=== PATIENT | female | born 1935 | race Caucasian/White ===

== ENCOUNTER 2017-01-09 09:24 | Outpatient (CLI) | payer MEDICARE, BC ==
[~2017-01-09] VITALS: Ht 172.7 cm; Wt 76.8 kg
--- NOTE | ~2017-01-09 | HEMODYNAMI ---
PATIENT:ANNALISA ALVARADO MEDICAL RECORD: [id number] : 35 LOCATION:[facility] ADMISSION DATE: 01/09/17 Generatedon:01/11/201711:02 Patient name: ANNALISA ALVARADO Patient #: [id number] SSN: : 1935 Date of study: 01/09/2017 Page: Of Hemodynamic Procedure Report Patient Data Patient Demographics Procedure consent was obtained First Name: ANNALISA Gender: Female Last Name: CHRISTIANO : 1935 [facility] Initial: DAVI Age: 81 year(s) Patient #: [id number] Race: Additional ID: [id number] Contact details Address: [address] [place] [address] [address] State: [place] City: [place] Zip code: [address] Past Medical History Allergies Allergen Reaction Date Comments Reported Other allergy 01/09/2017 LATEX Other allergy 01/10/2017 Latex Admission Admission Data Admission Date: 01/09/2017 Admission Time: 9:24 Room #: D.2122 Height (in.): 68 BSA: 1.9 (m2) Height (cm.): 172.72 BMI: 25.54 (kg/m2) Weight (lbs.): 168 Weight (kg.): 76.2 Lab Results Lab Result Date: 01/10/2017 Lab Result Time: 7:05 Biochemistry Name Units Result Min Max BUN mg/dl 14 --(--*-)-- 7 18 CK-MB ng/ml 2.6 --(--*-)-- 0 3.6 Creatinine mg/dl 0.9 --(-*--)-- 0.6 1.3 Creatinine l 118 --(-*--)-- 21 215 Kinase Troponin l ng/ml 0.172 --(----)-* 0 0.06 Procedure Procedure Types Cath Procedure Diagnostic Procedure [facility] w/Coronaries PCI Procedure Coronary Stent Initial Miscellaneous Procedures Moderate Sedation up to 30 minutes Procedure Description Procedure Date Procedure Date: 01/09/2017 Procedure Start Time: 12:40 Procedure End Time: 13:02 Procedure Staff Name Function Holley Ayush RT Monitor Julio César Augustin MD Performing Physician Moni Gilman RN Nurse Bryson Wilkerson RT Scrub Procedure Data Cath Procedure Fluoroscopy Diagnostic fluoroscopy Total fluoroscopy Time: 4.6 time: 4.6 min min Diagnostic fluoroscopy Total fluoroscopy dose: 443 dose: 443 mGy mGy Contrast Material Contrast Material Type Amount (ml) Isovue 300 109 Entry Location Entry Primary Successful Side Size Upsize Upsize Entry Closure Succes sful Closure Location (Fr) 1 (Fr) 2 (Fr) Remarks Device Remarks Femoral Right 5 Fr 6 Fr Exoseal artery Short Estimated blood loss: 10 ml Diagnostic catheters Device Type Used For End Catheter Placement Cordis 5Fr Pigtail LV Angiography Catheter (MP) Cordis 5Fr JL 4.0 Left Coronary Catheter (MP) Angiography Cordis 5Fr 3DRC Catheter Right Coronary (MP) Angiography Procedure Complications No complications Procedure Medications Medication Administration Route Dosage Oxygen NC 2 l/min Heparin Flush Bag added to field 2 bags (1000units/500ml NS) Lidocaine 2% added to field 20 Versed I.V. 1 mg Fentanyl I.V. 50 mcg Versed I.V. 0.5 mg Fentanyl I.V. 25 mcg Versed I.V. 0.5 mg Fentanyl I.V. 25 mcg Heparin Bolus I.V. 4000 units Hemodynamics Rest BSA: 1.9 (m2) O2 Consumption: Estimated: 164.72 (ml/min) O2 Consumption indexed: Estimated:86.69 (ml/min/m) Heart Rate: 62 (bpm) Snapshots Pre Cath Intra NCS Post Cath Vital Signs Time Heart Resp SPO2 NIBP (mmHg) Rhythm Pain Sedation Rate (ipm) (%) Status Level (bpm) 12:29:06 63 18 100 187/89(112) NSR 0 (11) 10(A) , No pain 12:33:34 63 17 95 177/83(149) NSR 0 (11) 10(A) , No pain 12:38:00 62 16 98 167/79(134) NSR 0 (11) 10(A) , No pain 12:42:22 67 16 100 160/74(128) NSR 0 (11) 9(A) , No pain 12:46:43 64 14 98 152/77(124) NSR 0 (11) 9(A) , No pain 12:51:03 65 14 98 149/71(110) NSR 0 (11) 9(A) , No pain 12:55:19 76 16 100 100/63(88) NSR 0 (11) 9(A) , No pain 13:00:09 66 15 100 163/84(127) NSR 0 (11) 9(A) , No pain Medications Time Medication Route Dose Verified Delivered Reason Notes Effectiveness by by 12:28:07 Oxygen NC 2 Julio César Moni Per physician l/min Demetria Gilman RN 12:28:13 Heparin Flush added 2 Julio César Julio César used for Bag to bags Demetria Augustin MD procedure (1000units/500ml field NS) 12:28:25 Lidocaine 2% added 20ml Julio César Julio César used for to vial Demetria Augustin MD procedure field 12:34:58 Versed I.V. 1 mg Julio César Moni for sedation Demetria Gilman RN 12:35:04 Fentanyl I.V. 50 Julio César Moni for sedation mcg Demetria Gilman RN 12:37:18 Versed I.V. 0.5 Julio César Moni for sedation mg Demetria Gilman RN 12:37:22 Fentanyl I.V. 25 Julio César Moni for sedation mcg Demetria Gilman RN 12:40:17 Versed I.V. 0.5 Julio César Moni for sedation mg Demetria Gilman RN 12:40:20 Fentanyl I.V. 25 Julio César Moni for sedation mcg Demetria Gilman RN 12:46:13 Heparin Bolus I.V. 4000 Julio César Moni for dose units Demetria Gilman RN anticoagulation verified with dr augustin Procedure Log Time Note 12:16:09 Nathalie Post RN sent for patient. Start room use. 12:16:10 Time tracking: Regular hours 12:16:14 Plan of Care:Hemodynamics will remain stable., Cardiac rhythm will remain stable., Comfort level will be maintained., Respiratory function will remain adequate., Patient/ family verbilizes understanding of procedure., Procedure tolerated without complication., Recovers from procedure without complications.. 12:23:12 Patient received from Pre/Post Procedure Room to CCL 1 Alert and oriented. Tansferred to table in Supine position. 12:23:13 Warm blankets applied, and loretta hugger turned on for patient comfort. 12:23:14 Correct patient and procedure confirmed by team. 12:23:18 Signed procedure consent form obtained from patient. 12:23:19 ECG and BP/O2 sat monitors applied to patient. 12:23:21 Full Disclosure recording started 12:27:57 Vital chart was started 12:28:07 Oxygen 2 l/min NC was administered by Moni Gilman RN; Per physician; 12:28:13 Heparin Flush Bag (1000units/500ml NS) 2 bags added to field was administered by Julio César Augustin MD; used for procedure; 12:28:25 Lidocaine 2% 20ml vial added to field was administered by Julio César Augustin MD; used for procedure; 12:31:16 Rhythm: sinus rhythm 12:31:24 H&P Date Dictated: 01/08/2017 Within 30 days and on chart., H&P Addendum completed by physician on day of procedure. (MUST COMPLETE FOR ALL OUTPATIENTS). 12:31:26 Pre-op teaching completed and patient verbalized understanding. 12:31:26 Pre-procedure instructions explained to patient. 12:31:27 Family in waiting room. 12:31:29 Patient NPO since Midnight. 12:31:45 Patient allergic to Other allergyLATEX 12:31:47 Is the patient allergic to Iodine/contrast media? No. 12:31:50 Is patient on blood thinner?Yes 12:31:53 ACC The patient was administered the following blood thiners within the last 24 hours: ACCPlavix 12:31:55 Patient diabetic? No. 12:32:23 Previous problem with sedation/anesthesia? No ? 12:32:24 Snore? Yes 12:32:25 Sleep apnea? No 12:32:27 Deviated septum? No 12:32:28 Opens mouth fully? Yes 12:32:29 Sticks out tongue? Yes 12:32:31 Airway obstruction? No ? 12:32:41 Dentures? Yes Partial in 12:32:44 Pre procedure: right dorsailis pedis pulse 2+ Normal; easily identifiable; not easily obliterated 12:32:51 Patient pain scale 0/10 ?. 12:32:57 IV patent on arrival in left hand with 0.9% NaCl at KVO. 12:33:06 Lab results completed and on chart. 12:33:11 Right groin area was prepped with chlora-prep and draped in sterile fashion 12:33:17 Patient Height : 68 cm 12:33:20 Patient Weight : 168 kg 12:33:24 Sharps counted by scrub and verified by R.N. 12:33:24 Alarms reviewed by R. N. 12:34:13 Baseline sample Acquired. 12:34:15 Final Timeout: patient, procedure, and site verified with staff and physician. All members of the team are in agreement. 12:34:17 Right groin site verified by team. 12:34:20 Physical assessment completed. ASA score P 2 - A patient with mild systemic disease as per Julio César Augustin MD. 12:34:24 Sedation plan: IV Moderate Sedation Versed, Fentanyl 12:34:34 Use device set Femoral Dx 12:34:35 Acist Syringe opened to sterile field. 12:34:36 Terumo 5Fr Roseboom Sheath opened to sterile field. 12:34:36 Medline Cath Pack opened to sterile field. 12:34:36 Bag Decanter opened to sterile field. 12:34:37 St Juan F 260cm J .035 wire opened to sterile field. 12:34:38 Acist Manifold opened to sterile field. 12:34:38 Acist Hand Control opened to sterile field. 12:34:39 Tegaderm 4 x 4 opened to sterile field. 12:34:39 Diagnostic Infinity 5Fr Multipack catheter opened to sterile field. 12:34:58 Versed 1 mg I.V. was administered by Moni Gilman RN; for sedation; 12:35:04 Fentanyl 50 mcg I.V. was administered by Moni Gilman RN; for sedation; 12:37:18 Versed 0.5 mg I.V. was administered by Moni Gilman RN; for sedation; 12:37:22 Fentanyl 25 mcg I.V. was administered by Moni Gilman RN; for sedation; 12:40:17 Versed 0.5 mg I.V. was administered by Moni iGlman RN; for sedation; 12:40:20 Fentanyl 25 mcg I.V. was administered by Moni Gilman RN; for sedation; 12:40:20 Procedure started. 12:40:26 Local anesthetic to right femoral artery with Lidocaine 2% by Julio César Augustin MD.INITIAL ACCESS ONLY 12:40:46 A 5 Fr sheath was inserted into the Right Femoral artery 12:41:27 A Cordis 5Fr Pigtail Catheter (MP) was advanced over the wire and used for LV Angiography. 12:41:42 LV gram done using REYEZ 12::46 Injector settings: Ml/sec: 10, Volume: 20, 12:42:03 EF : 50 % 12:42:06 Catheter removed. 12:42:13 A Cordis 5Fr JL 4.0 Catheter (MP) was advanced over the wire and used for Left Coronary Angiography. 12:43:15 Wright Tujiaisper J 300cm 0.014 guide wire opened to sterile field. 12:43:15 MicrodermisixCompak Inflation Kit opened to sterile field. 12:43:16 Terumo 6Fr Roseboom Sheath opened to sterile field. 12:43:22 Catheter removed. 12:43:44 A Cordis 5Fr 3DRC Catheter (MP) was advanced over the wire and used for Right Coronary Angiography. 12:44:28 Catheter removed. 12:44:42 Medtronic Launcher 6Fr HS I guide catheter opened to sterile field. 12:45:00 Sheath upsized to a 6 Fr Short. 12:45:19 6 Fr HS I guide catheter was inserted over the wire 12:46:13 Heparin Bolus 4000 units I.V. was administered by Moni Gilman RN; for anticoagulation; dose verified with dr augustin 12:48:00 Tujiaisper wire advanced. 12:48:12 Inflation number: 1 A Grant Sci Custer 2.5 X 15 balloon was prepped and advanced across the Mid RCA, then inflated to 9 KAR for 0:07 (min:sec). 12:48:33 Balloon removed over the wire. 12:50:37 Inflation Number: 2 A Biofreedom 3.0 x 24 stent (No Cost Implant) was prepped and advanced across the Mid RCA. The stent was deployed at 13 KAR for 0:11 (min:sec). 12:51:05 Inflation number: 3 The stent balloon was then re-inflated across the Mid RCA to 13 KAR for 0:11 (min:sec). 12:51:53 Stent catheter was removed intact over wire. 12:52:43 Inflation Number: 1 A Biofreedom 3.0 x 24 stent (No Cost Implant) was prepped and advanced across the Prox RCA. The stent was deployed at 15 KAR for 0:06 (min:sec). 12:53:20 Stent catheter was removed intact over wire. 12:53:21 Guide catheter removed. 12:53:21 Wire removed. 12:53:30 Cordis 6Fr Exoseal opened to sterile field. 12:54:05 Sheath removed intact; hemostasis achieved with Exoseal to the Right Femoral artery. 12:54:06 Procedure ended.(Physican Out) 12:55:29 Fluoroscopy time 04.60 minutes. 12:55:33 Fluoroscopy dose: 443 mGy 12:55:33 Flurop Dose total: 443 12:55:39 Contrast amount:Isovue 300 109ml. 12:55:40 Sharps counted by scrub and verified by R.N. 12:55:42 Insertion/operative site no bleeding no hematoma. 12:55:44 Post-op/insertion site Right Femoral artery dressed using a 4 x 4 and Tegaderm. 12:55:48 Post right femoral artery:stable, clean and dry 12:55:50 Post Procedure Pulses reassessed and unchanged 12:55:55 Post-procedure physical assessment completed. ASA score P 2 - A patient with mild systemic disease as per Julio César Augustin MD. 12:55:58 Post procedure rhythm: unchanged. 12:56:01 Estimated blood loss: 10 ml 12:56:02 Patient needs reinforcement of post procedure teaching. 12:56:02 Post procedure instruction explained to patient.Patient verbalizes understanding. 12:56:15 Procedure type changed to Cath procedure, Diagnostic procedure, LHC, LHC w/Coronaries, PCI procedure, Coronary Stent Initial, Miscellaneous Procedures, Moderate Sedation up to 30 minutes 12:56:19 Procedure Complication : No complications 12:56:21 See physician's report for complete and final results. 13:01:23 Procedure and supply charges have been captured, reviewed, submitted and are correct. 13:01:55 Vital chart was stopped 13:01:57 Report given to PCU. 13:02:07 Patient transfered to PCU with Bed. 13:02:16 Full Disclosure recording stopped 13:02:16 Procedure ended. 13:02:23 End room use (Document Last) Intervention Summary Intervention Notes Time ActionType Lesion and Equipment Action# Pressure Duration Attributes Used 12:48:12 Inflate Mid RCA Grant Sci 1 9 00:07 balloon Custer 2.5 X 15 balloon 12:50:37 Place stent Mid RCA Biofreedom 2 13 00:11 3.0 x 24 stent (No Cost Implant) 12:51:05 Reinflate Mid RCA Biofreedom 3 13 00:11 stent 3.0 x 24 balloon stent (No Cost Implant) 12:52:43 Place stent Prox RCA Biofreedom 1 15 00:06 3.0 x 24 stent (No Cost Implant) Device Usage Item Name Manufacture Quantity Catalog Number Hospital Part Current Mini mal Lot# / Charge Number Stock Stock Serial# Code Acist Acist 1 26025 356316 747569 793592 20 Syringe Medical Systems Inc Bag Microtek 1 2002S 272681 63780 993291 5 Biodirection Inc. Medline Cardinal 1 [id number] 542840 24469 272579 5 Cath Pack Health Terumo 5Fr Terumo 1 [id number] 025986 757072 022161 [address] [facility] Juan F 1 205552 114408 747714 538487 30 260cm J .035 wire Acist Hand Acist 1 02934 016551 396559 419509 5 Trax Technologies Medical Systems Inc Acist Acist 1 15085 471126 088910 896996 [address] Autos Medical [employer] Inc Diagnostic Cardinal 1 [id number] 270711 71249 887810 30 Infinity Health 5Fr Multipack catheter Tegaderm 4 3M 1 1626W 907404 618214 715132 5 x 4 Cordis 5Fr Cardinal 1 [id number] 5 Pigtail Health Catheter (MP) Cordis 5Fr Cardinal 1 206279 5 JL 4.0 Health Catheter (MP) Merit Merit 1 [id number] 084582 871502 743499 15 BasixCompak Medical Inflation Kit Wright Wright 1 [id number] 097427 262986 327558 5 Whisper J Vascular 300cm 0.014 guide wire Terumo 6Fr Terumo 1 [id number] 388835 973104 755593 40 Roseboom Sheath Cordis 5Fr Cardinal 1 395441 5 3DRC Health Catheter (MP) Medtronic Medtronic 1 [facility] 584901 35447 180941 1 Launcher 6Fr HS I guide catheter Grant Sci Grant 1 [id number] 508606 671712 768624 1 [id number] YouRenew 2.5 X 15 balloon Biofreedom Biosensors 2 RC2-3024 004532 141952 5 [id number] 3.0 x 24 [place] SA [id number] stent (No Cost Implant) Cordis 6Fr Cardinal 1 EX600 409221 861029 663917 10 [facility] Health Signature Audit [place] Stage Time Signature Unsigned Intra-Procedure 01/09/2017 Holley Babb Counts 1:02:36 PM Counts RT(R) RT(R) 01/11/2017 11:01:19 AM Intra-Procedure 01/11/2017 Holley 11:02:21 AM Counts RT(R) Signatures Monitor : Holley Signature : Counts RT Date : Time : [id number] [place] [address]
--- NOTE | ~2017-01-09 | HEMODYNAMI ---
PATIENT:ANNALISA ALVARADO MEDICAL RECORD: [id number] : 35 LOCATION:[facility] ADMISSION DATE: 01/09/17 Generatedon:01/11/201710:56 Patient name: ANNALISA ALVARADO Patient #: [id number] SSN: : 1935 Date of study: 01/10/2017 Page: Of Hemodynamic Procedure Report Patient Data Patient Demographics Procedure consent was obtained First Name: ANNALISA Gender: Female Last Name: CHRISTIANO : 1935 [facility] Initial: DAVI Age: 81 year(s) Patient #: [id number] Race: Additional ID: [id number] Contact details Address: [address] [place] [address] [address] State: [place] City: [place] Zip code: [address] Past Medical History Allergies Allergen Reaction Date Comments Reported Other allergy 01/09/2017 LATEX Other allergy 01/10/2017 Latex Admission Admission Data Admission Date: 01/09/2017 Admission Time: 9:24 Room #: [facility] Height (in.): 68 BSA: 1.9 (m2) Height (cm.): 172.72 BMI: 25.54 (kg/m2) Weight (lbs.): 168 Weight (kg.): 76.2 Lab Results Lab Result Date: 01/10/2017 Lab Result Time: 7:05 Biochemistry Name Units Result Min Max BUN mg/dl 14 --(--*-)-- 7 18 CK-MB ng/ml 2.6 --(--*-)-- 0 3.6 Creatinine mg/dl 0.9 --(-*--)-- 0.6 1.3 Creatinine l 118 --(-*--)-- 21 215 Kinase Troponin l ng/ml 0.172 --(----)-* 0 0.06 Procedure Procedure Types Cath Procedure PCI Procedure Coronary Stent Initial x2 Miscellaneous Procedures Moderate Sedation up to 15 minutes Procedure Description Procedure Date Procedure Date: 01/10/2017 Procedure Start Time: 9:37 Procedure End Time: 9:56 Procedure Staff Name Function Alo Dennis RT Monitor Boogie Martinez RT Scrub Julio César Augustin MD Performing Physician Moni Gilman RN Nurse Bryson Wilkerson RT Monitor Procedure Data Cath Procedure Fluoroscopy Diagnostic fluoroscopy Total fluoroscopy Time: 4.7 time: 4.7 min min Diagnostic fluoroscopy Total fluoroscopy dose: 185 dose: 185 mGy mGy Contrast Material Contrast Material Type Amount (ml) Isovue 300 102 Entry Location Entry Primary Successful Side Size Upsize Upsize Entry Closure Succes sful Closure Location (Fr) 1 (Fr) 2 (Fr) Remarks Device Remarks Femoral Left 6 Fr Exoseal artery Short Estimated blood loss: 10 ml Procedure Complications No complications Procedure Medications Medication Administration Route Dosage Oxygen NC 2 l/min Heparin Flush Bag added to field 2 bags (1000units/500ml NS) Lidocaine 2% added to field 20 Plavix P.O. 75 mg Versed I.V. 1 mg Fentanyl I.V. 50 mcg Versed I.V. 1 mg Fentanyl I.V. 50 mcg Heparin Bolus I.V. 4000 units Versed I.V. 1 mg Fentanyl I.V. 50 mcg Nitroglycerin IC/IA I.C. 200 mcg Versed I.V. 1 mg Fentanyl I.V. 50 mcg Hemodynamics Rest BSA: 1.9 (m2) O2 Consumption: Estimated: 168.86 (ml/min) O2 Consumption indexed: Estimated:88.87 (ml/min/m) Heart Rate: 68 (bpm) Snapshots Pre Cath Intra NCS Post Cath Vital Signs Time Heart Resp SPO2 etCO2 [id number] NIBP (mmHg) Rhythm Pain Sedation Rate (ipm) (%) (mmHg) (mmHg) Status Level (bpm) 9:04:58 68 17 99 0 0 100/53(82) NSR 0 (11) 10(A) , No pain 9:09:57 67 17 99 0 0 Measuring NSR 0 (11) 10(A) , No pain 9:10:00 68 17 99 0 0 146/75(128) NSR 0 (11) 10(A) , No pain 9:14:22 65 16 98 0 0 144/69(125) NSR 0 (11) 10(A) , No pain 9:18:42 66 16 96 0 0 146/68(124) NSR 0 (11) 10(A) , No pain 9:23:00 64 16 97 0 0 116/74(98) NSR 0 (11) 10(A) , No pain 9:27:12 61 24 98 0 0 131/63(105) NSR 0 (11) 10(A) , No pain 9:31:28 62 16 98 0 0 117/66(97) NSR 0 (11) 10(A) , No pain 9:35:40 61 16 94 0 0 110/65(84) NSR 0 (11) 10(A) , No pain 9:39:49 64 19 88 0 0 116/65(91) NSR 0 (11) 9(A) , No pain 9:43:59 70 16 98 0 0 121/68(101) NSR 0 (11) 9(A) , No pain 9:48:09 68 17 95 0 0 136/71(103) NSR 0 (11) 9(A) , No pain 9:52:25 67 20 96 0 0 132/70(107) NSR 0 (11) 10(A) , No pain 9:57:20 66 95 0 0 128/68(103) NSR 0 (11) 10(A) , No pain Medications Time Medication Route Dose Verified Delivered Reason Notes Effectiveness by by 9:00:20 Plavix P.O. 75 mg Julio César Moni for Demetria Gilman RN antiplatelet therapy 9:06:01 Oxygen NC 2 Julio César Moni Per physician l/min Demetria Gilman RN 9:06:10 Heparin Flush added 2 Julio César Julio César used for Bag to bags Demetria Augustin MD procedure (1000units/500ml field NS) 9:06:18 Lidocaine 2% added 20ml Julio César Julio César used for to vial Demetria Augustin MD procedure field 9:36:25 Versed I.V. 1 mg Julio César Moni for sedation Demetria Gilman RN 9:36:31 Fentanyl I.V. 50 Julio César Moni for sedation mcg Demetria Gilman RN 9:38:46 Versed I.V. 1 mg Julio César Moni for sedation Demetria Gilman RN 9:38:49 Fentanyl I.V. 50 Julio César Moni for sedation mcg Demetria Gilman RN 9:39:09 Heparin Bolus I.V. 4000 Julio César Moni for dose units Demetria Gilman RN anticoagulation verified wtih dr augustin 9:40:51 Versed I.V. 1 mg Julio César Moni for sedation Demetria Gilman RN 9:40:56 Fentanyl I.V. 50 Julio César [place] for sedation mcg Demetria Gilman RN 9:42:45 Versed I.V. 1 mg Julio César [place] for sedation Demetria Gilman RN 9:42:49 Fentanyl I.V. 50 Julio César [place] for sedation mcg Demetria Gilman RN 9:45:00 Nitroglycerin I.C. 200 Julio César [place] for IC/IA mcg Demetria Augustin MD vasodilation Procedure Log Time Note 8::56 Patient Weight : 168 kg 8::56 Patient Height : 68 cm 8:43:42 Boogie Martinez RT(R) sent for patient. Start room use. 8:43:43 Time tracking: Regular hours 8:43:47 Plan of Care:Hemodynamics will remain stable., Cardiac rhythm will remain stable., Comfort level will be maintained., Respiratory function will remain adequate., Patient/ family verbilizes understanding of procedure., Procedure tolerated without complication., Recovers from procedure without complications.. 8:55:52 Patient received from PCU to CCL 1 Alert and oriented. Tansferred to table in Supine position. 8:55:53 Correct patient and procedure confirmed by team. 8:55:53 Warm blankets applied, and loretta hugger turned on for patient comfort. 8:55:56 Signed procedure consent form obtained from patient. 8:55:57 ECG and BP/O2 sat monitors applied to patient. 9:00:20 Plavix 75 mg P.O. was administered by Moni Gilman RN; for antiplatelet therapy; 9:03:16 Vital chart was started 9:06:01 Oxygen 2 l/min NC was administered by Moni Gilman RN; Per physician; 9:06:10 Heparin Flush Bag (1000units/500ml NS) 2 bags added to field was administered by Julio César Augustin MD; used for procedure; 9:06:18 Lidocaine 2% 20ml vial added to field was administered by Julio César Augustin MD; used for procedure; 9:12:26 Baseline sample Acquired. 9:12:29 Full Disclosure recording started 9:12:51 H&P Date Dictated: 01/08/2017 Within 30 days and on chart.. 9:12:52 Pre-procedure instructions explained to patient. 9:12:53 Pre-op teaching completed and patient verbalized understanding. 9:13:02 Family in waiting room. 9:13:07 Patient NPO since Midnight. 9:13:18 Patient allergic to Other allergyLatex 9:13:20 Is the patient allergic to Iodine/contrast media? No. 9:13:21 Is patient on blood thinner?Yes 9:13:23 ACC The patient was administered the following blood thiners within the last 24 hours: ACCPlavix 9:13:25 Patient diabetic? No. 9:13:31 Previous problem with sedation/anesthesia? No ? 9:13:32 Snore? Yes 9:13:33 Sleep apnea? No 9:13:34 Deviated septum? No 9:13:36 Opens mouth fully? Yes 9:13:38 Sticks out tongue? Yes 9:13:41 Airway obstruction? No ? 9:13:47 Dentures? Yes Partial In 9:13:51 Pre procedure: left dorsailis pedis pulse 2+ Normal; easily identifiable; not easily obliterated 9:13:53 Patient pain scale 0/10 ?. 9:13:58 IV patent on arrival in left forearm with 0.9% NaCl at O. 9:14:44 Lab results completed and on chart. 9:14:47 Left groin area was prepped with chlora-prep and draped in sterile fashion 9:14:48 Sharps counted by scrub and verified by R.N. 9:14:48 Alarms reviewed by R. N. 9:14:51 Use device set Femoral PCI 9:14:52 Tegaderm 4 x 4 opened to sterile field. 9:14:55 Acist Syringe opened to sterile field. 9:14:56 Bag Decanter opened to sterile field. 9:14:56 Acist Hand Control opened to sterile field. 9:14:57 Terumo 6Fr [place] Sheath opened to sterile field. 9:14:57 Medline Cath Pack opened to sterile field. 9:14:58 Merit BasixCompak Inflation Kit opened to sterile field. 9:14:58 St Juan F 260cm J .035 wire opened to sterile field. 9:14:59 Acist Manifold opened to sterile field. 9:15:20 Rhythm: sinus rhythm 9:16:43 Wright Whisper J 300cm 0.014 guide wire opened to sterile field. :: Lab Result : Creatinine Kinase 118 l :: Lab Result : Troponin l 0.172 ng/ml :: Lab Result : CK-MB 2.6 ng/ml :: Lab Result : BUN 14 mg/dl :: Lab Result : Creatinine 0.9 mg/dl 9:20:00 Physician paged 9:20:17 Zero performed for pressure channel P1 9::30 Zero performed for pressure channel P1 9::55 Zero performed for pressure channel P1 9::45 Physician arrived 9::46 --------ALL STOP TIME OUT------ 9:35:47 Final Timeout: patient, procedure, and site verified with staff and physician. All members of the team are in agreement. 9:35:49 Left groin site verified by team. 9:35:56 Physical assessment completed. ASA score P 2 - A patient with mild systemic disease as per Julio César Augustin MD. 9:36:00 Sedation plan: IV Moderate Sedation Versed, Fentanyl 9:36:25 Versed 1 mg I.V. was administered by Moni Gilman RN; for sedation; 9:36:31 Fentanyl 50 mcg I.V. was administered by Moni Gilman RN; for sedation; 9:37:46 Cordis 6FR XB 3.5 guide catheter opened to sterile field. 9:37:51 Procedure started. 9:37:57 Local anesthetic to left femerol artery with Lidocaine 2% by Julio César Augustin MD.INITIAL ACCESS ONLY 9:38:10 A 6 Fr Short sheath was inserted into the Left Femoral artery 9:38:46 Versed 1 mg I.V. was administered by Moni Gilman RN; for sedation; 9:38:49 Fentanyl 50 mcg I.V. was administered by Moni Gilman RN; for sedation; 9:38:56 6 Fr XB 3.5 guide catheter was inserted over the wire 9:39:09 Heparin Bolus 4000 units I.V. was administered by Moni Gilman RN; for anticoagulation; dose verified [facility] dr augustin 9:39:24 LCA angiography performed. 9:40:17 WHISPER wire advanced. 9:40:44 Wire advanced across lesion. 9:40:51 Versed 1 mg I.V. was administered by Moni Gilman RN; for sedation; 9:40:56 Fentanyl 50 mcg I.V. was administered by Moni Gilman RN; for sedation; 9:41:10 Inflation Number: 1 A Biofreedom 2.5 x 18 stent (No Cost Implant) was prepped and advanced across the Mid CX. The stent was deployed at 15 KAR for 0:10 (min:sec). 9:41:43 Stent catheter was removed intact over wire. 9:42:45 Versed 1 mg I.V. was administered by Moni Gilman RN; for sedation; 9:42:49 Fentanyl 50 mcg I.V. was administered by Moni Gilman RN; for sedation; 9:43:54 Inflation number: 2 A Euphora 3.0 x 10 balloon was prepped and advanced across the Mid CX, then inflated to 13 KAR for 0:10 (min:sec). 9:44:01 Inflation number: 3 The Euphora 3.0 x 10 balloon was reinflated across the Mid CX, to 17 KAR for 0:10 (min:sec). 9:44:20 Inflation number: 4 The Euphora 3.0 x 10 balloon was reinflated across the Mid CX, to 11 KAR for 0:10 (min:sec). 9:45:00 Nitroglycerin IC/IA 200 mcg I.C. was administered by Julio César Augustin MD; for vasodilation; 9:45:08 Balloon removed over the wire. 9:46:43 Inflation Number: 5 A Biofreedom 2.5 x 14 stent (No Cost Implant) was prepped and advanced across the Mid CX. The stent was deployed at 11 KAR for 0:10 (min:sec). 9:47:23 Stent catheter was removed intact over wire. 9:47:27 Wire redirected to LAD. 9:47:49 Wire advanced across lesion. 9:49:06 Inflation Number: 1 A Biofreedom 3.0 x 28 stent (No Cost Implant) was prepped and advanced across the Prox LAD. The stent was deployed at 13 KAR for 0:10 (min:sec). 9:49:30 Cordis 6Fr Exoseal opened to sterile field. 9:49:33 Stent catheter was removed intact over wire. 9:49:34 Guide catheter removed. 9:49:34 Wire removed. 9:49:41 Sheath removed intact; hemostasis achieved with Exoseal to the Left Femoral artery. 9:49:43 Procedure ended.(Physican Out) 9:49:53 Fluoroscopy time 04.70 minutes. 9:49:57 Fluoroscopy dose: 185 mGy 9:49:57 Flurop Dose total: 185 9:50:02 Contrast amount:Isovue 300 102ml. 9:54:21 Sharps counted by scrub and verified by R.N. 9:54:22 Insertion/operative site no bleeding no hematoma. 9:54:25 Post-op/insertion site Left Femoral artery dressed using a 4 x 4 and Tegaderm. 9:54:30 Post left femerol artery:stable, soft, clean and dry 9:54:31 Post Procedure Pulses reassessed and unchanged 9:54:34 Post-procedure physical assessment completed. ASA score P 2 - A patient with mild systemic disease as per Julio César Augustin MD. 9:54:36 Post procedure rhythm: unchanged. 9:54:38 Estimated blood loss: 10 ml 9:54:40 Post procedure instruction explained to patient.Patient verbalizes understanding. 9:55:05 Patient needs reinforcement of post procedure teaching. 9:55:22 Procedure type changed to Cath procedure, PCI procedure, Coronary Stent Initial x2, Miscellaneous Procedures, Moderate Sedation up to 15 minutes 9:56:10 Procedure and supply charges have been captured, reviewed, submitted and are correct. 9:56:12 Procedure Complication : No complications 9:56:14 See physician's report for complete and final results. 9:56:14 Vital chart was stopped 9:56:17 Report given to PCU. 9:56:20 Patient transfered to PCU with Stretcher. 9:56:23 Full Disclosure recording stopped 9:56:23 Procedure ended. 9:57:15 End room use (Document Last) Intervention Summary Intervention Notes Time ActionType Lesion and Equipment Action# Pressure Duration Attributes Used 9:41:10 Place stent Mid CX Biofreedom 1 15 00:10 2.5 x 18 stent (No Cost Implant) 9:43:54 Inflate Mid CX Euphora 2 13 00:10 balloon 3.0 x 10 balloon 9:44:01 Reinflate Mid CX Euphora 3 17 00:10 balloon 3.0 x 10 balloon 9:44:20 Reinflate Mid CX Euphora 4 11 00:10 balloon 3.0 x 10 balloon 9:46:43 [address] stent Mid CX Biofreedom 5 11 00:10 2.5 x 14 stent (No Cost Implant) 9:49:06 Place stent Prox LAD Biofreedom 1 13 00:10 3.0 x 28 stent (No Cost Implant) Device Usage Item Name Manufacture Quantity Catalog Hospital Part Current Minimal Lot# / Number Charge Number Stock Stock Serial# Code Tegaderm 4 1 [id number] 278246 476979 5 x 4 Acist Acist 1 90142 536117 798153 986001 20 Syringe Medical Systems Inc Acist Hand Acist 1 34675 978866 067807 162384 5 WhatsOpen Medical Systems [employer] Sports Affinity Marketing Bag Microtek 1 2002S 993586 36170 700348 5 Teamie Inc. Medline Cardinal 1 [id number] 441941 57094 223694 5 Cath Revistronic Terumo 6Fr Terumo 1 [id number] 146642 468353 914621 [address] Juan F 1 451219 663757 514885 522549 30 260cm J .035 wire Merit Merit 1 [id number] 719592 177724 658128 15 [facility] Inflation Kit Acist Acist 1 39414 259984 599655 373528 5 Allena [employer] Medical Systems Inc Wright Wright 1 [id number] 241603 539971 134133 5 Whisper J Vascular 300cm 0.014 guide wire Cordis 6FR Cardinal 1 [id number] 826742 053092 397277 2 XB 3.5 Health guide catheter Biofreedom Biosensors 1 BFRC2-8817 827015 344226 5 [id number] 2.5 x 18 [place] SA stent (No Cost Implant) Euphora 3.0 Medtronic 1 [id number] 432832 670183 717241 5 [id number] x 10 balloon Biofreedom Biosensors 1 BFRC2-1346 419705 780773 5 [id number] 2.5 x 14 [place] SA stent (No Cost Implant) Biofreedom Biosensors 1 BFRC2-3028 954503 475400 5 [id number] 3.0 x 28 Europe SA stent (No Cost Implant) Cordis 6Fr Cardinal 1 [id number] 452868 916211 475556 10 [facility] Signature Audit Barton Stage Time Signature Unsigned Intra-Procedure 01/10/2017 Bryson Wilkerson RT(R) 9:57:37 AM RT(R) 01/11/2017 10:55:20 AM Intra-Procedure 01/11/2017 Bryson Wilkerson 10:56:08 AM RT(R) Signatures Monitor : Alo Dennis RT Signature : Date : Time : Monitor : Bryson Wilkerson RT Signature : Date : Time : [id number] [place] [address]
[2017-01-09 10:41] LABS: BASOPHILS 0.4 % (0-2); EOSINOPHILS 1.2 % (0-7); HEMATOCRIT 40.8 % (36.0-48.0); HEMOGLOBIN 13.8 g/dL (12-16); LYMPHOCYTES 45.4 % (15-50); MCH 30.2 pg (26.0-34.0); MCHC 33.8 g/dL (31.0-37.0); MCV 89.3 fL (80.0-100.0); MEAN PLATELET VOLUME 9.9 fL (7.4-10.4); MONOCYTES 8.9 % (2-11); NEUTROPHILS 44.1 % (40-80); PLATELET COUNT 166 10x3/uL (130-400); RBC 4.57 10x6/uL (4.00-5.40); RDW 13.1 % (11.5-14.5); WBC 4.9 10x3/uL (4.8-10.8)
[2017-01-09 10:45] VITALS: BP 155/67; BMI 25.6
[2017-01-09] MEDS ORDERED: KRILL OIL 1,001 EAC1 PO (10:49)
[2017-01-09] MEDS ORDERED: PLAVIX75 MG PO (10:49)
[2017-01-09] MEDS ORDERED: NP THYROID30 MG PO (10:50)
[2017-01-09] MEDS ORDERED: VITAMIN D5000 UNIT PO (10:50)
[2017-01-09] MEDS ORDERED: OCUVITE TABLET1 TA1 PO (10:50)
[2017-01-09 10:56] LABS: ANION GAP 12.3 mmol/L (8-16); CALCIUM 8.9 mg/dL (8.5-10.1); CARBON DIOXIDE 27.5 mmol/L (21.0-32.0); CREATININE - SERUM 0.9 mg/dL (0.6-1.3); POTASSIUM - SERUM 3.8 mmol/L (3.5-5.1)
[2017-01-09 12:45] LABS: CREATINE KINASE 238 UL (21-215)
[2017-01-09 15:57] VITALS: Ht 172.7 cm; Wt 76.8 kg
[2017-01-09 19:00] VITALS: BP 123/65
[2017-01-10] VITALS: BP 137/65
[2017-01-10 04:00] VITALS: BP 103/50
[2017-01-10 07:00] VITALS: BP 127/79
[2017-01-10] MEDS ORDERED: BAYER CHEWABLE81 MG PO (11:16)
[2017-01-10 12:00] VITALS: BP 104/66
--- NOTE | 2017-01-11 08:49 | DS ---
PATIENT:ANNALISA EUGENE :35 MEDICAL RECORD: [id number] DISCHARGE SUMMARY ADMISSION DATE: 01/09/17 DISCHARGE DATE: 01/10/17 DISCHARGE DIAGNOSES: 1. Angina. 2. Coronary artery disease. 3. Percutaneous transluminal coronary angioplasty stent right coronary artery, left anterior descending and left circumflex this admission. HOSPITAL COURSE: Mrs. Eugene presents with anginal symptomatology, found to have 3-vessel coronary artery disease, underwent successful PTCA stent of all 3 vessels. She was discharged home with the addition of aspirin and Plavix to her medical regimen. She will follow up with [facility] in 1 month. TRANSINT:[id number] Voice Confirmation ID: [id number] DOCUMENT ID: [id number] RAVINDRA JETER MD at 0849 CC: [id number] DICTATION DATE: 01/10/17 0959 HEAD STRENGTH AND CONDITIONING COACH: 01/11/17 0741 [facility] CLI 01/10/17 [address] [place] [address]
--- NOTE | 2017-01-11 08:49 | OP ---
PATIENT NAME: ANNALISA ALVARADO MEDICAL RECORD: [id number] :35 LOCATION:D.CAT ADMISSION DATE: SURGEON: RAVINDRA JETER MD DATE OF OPERATION: 01/10/2017 PROCEDURES: 1. PTCA stent LAD. 2. PTCA stent left circumflex. 3. Selective coronary angiography. PROCEDURE IN DETAIL: After informed consent was obtained and after detailed explanation of risks, benefits as well as alternative therapies, the patient elected to proceed with angiogram and angioplasty. The left femoral area was prepped and draped in normal sterile fashion. Left femoral artery was cannulated via modified Seldinger technique with placement of 6-Turkmen sheath. All catheters exchanged through this sheath. FINDINGS: The lesion #1 was in the left circumflex, it was a 90% stenosis, approximately 18-mm lesion in a 2.5 vessel with LAURA-3 flow. This was addressed with a 2.5 x 14 and 2.5 x 18, both BioFreedom stent. Result was 0% residual stenosis, LAURA-3 flow. Lesion #2 was LAD, it was a 25-mm lesion and had 80% stenosis in 3.0 vessel. This was addressed with a 3.0 x 28 mm Iva stent. Result was 0% residual stenosis, LAURA-3 flow. IMPRESSION: Successful percutaneous transluminal coronary angioplasty stent of the left anterior descending and left circumflex going from 80% to 90% stenosis to 0% residual stenosis. TRANSINT:[id number] Voice Confirmation ID: [id number] DOCUMENT ID: [id number] RAVINDRA JETER MD at 0849 CC: [id number] DICTATION DATE: 01/10/17 0958 GUARD LIEUTENANT: 01/10/17 1117 [facility] CLI 01/10/17 [place] [address]
--- NOTE | 2017-01-11 08:49 | OP ---
PATIENT NAME: ANNALISA ALVARADO MEDICAL RECORD: [id number] :35 LOCATION:D.CAT ADMISSION DATE: SURGEON: RAVINDRA JETER MD DATE OF OPERATION: 01/09/2017 PROCEDURES: 1. PTCA stent RCA. 2. Left heart catheterization. 3. Selective coronary angiography. 4. Left ventriculogram. INDICATION: Angina and coronary artery disease. PROCEDURE IN DETAIL: After informed consent was obtained and after detailed explanation of risks, benefits as well as alternative therapies, the patient elected to proceed with the angiogram and angioplasty. The right femoral area is prepped and draped in normal sterile fashion. The right femoral artery was cannulated via modified Seldinger technique with placement of 6-Nepali sheath. All catheters exchanged through this sheath. FINDINGS: Left ventriculogram was performed in standard 30-degree REYEZ view, reveals good cardiac wall motion throughout all segments. Overall ejection fraction estimated at 60%. SELECTIVE CORONARY ANGIOGRAPHY: 1. Left main showed no significant angiographic disease. 2. Left anterior descending has a long area of 70% stenosis proximally. 3. Left circumflex has 90% stenosis in the mid vessel. 3. The right coronary has a 75% stenosis proximally in a 3.0 vessel with 20 mm length and a 99% stenosis in the mid vessel that is a 3.0 vessel at 20 mm in length with LAURA-3 flow of the first lesion, LAURA 2 flow of the second lesion. PTCA STENT OF THE RIGHT CORONARY: Both lesions were treated with a 3.0 x 24 BioFreedom stent. Result was 0% residual stenosis. OVERALL IMPRESSION: Successful percutaneous transluminal coronary angioplasty stent of the right coronary artery going from 99% initial stenosis to 0% residual with caodaism of LAURA-3 flow. PLAN: PTCA stent of the left circumflex and LAD in the near future. TRANSINT:[id number] Voice Confirmation ID: [id number] DOCUMENT ID: [id number] RAVINDRA JETER MD at 0849 CC: [id number] DICTATION DATE: 01/09/17 1308 GLASS EMBOSSER: 01/09/17 2329 [facility] CLI 01/10/17 [place] [address]
== END 2017-01-10 15:15 | disposition home or self-care (01) ==
LOC: D.CATH 09:24 → D.M2 09:24 → D.CATH 11:30 → D.M2 13:11 → D.CATH 01-10 15:15
PROVIDERS: Internal Medicine Interventional Cardiology
DX: I25.119 Atherosclerotic heart disease of native coronary artery with unspecified angina pectoris (principal); Z00.6 Encounter for examination for normal comparison and control in clinical research program; Z01.812 Encounter for preprocedural laboratory examination

== ENCOUNTER → 2017-04-03 10:09 | Outpatient (CLI) | payer MEDICARE, BC ==
[2017-01-09 15:57] VITALS: BMI 25.6
[~2017-04-03 10:09] MED LIST: BAYER CHEWABLE81 MG PO; KRILL OIL 1,001 EAC1 PO; NP THYROID30 MG PO; OCUVITE TABLET1 TA1 PO; PLAVIX75 MG PO; VITAMIN D5000 UNIT PO
== END | disposition home or self-care (01) ==
LOC: D.US 10:09
DX: I73.9 Peripheral vascular disease, unspecified (principal)

== ENCOUNTER 2017-04-06 12:46 | Observation (INO) | payer MEDICARE, BC ==
[~2017-04-06] VITALS: Ht 172.7 cm; Wt 72.7 kg
--- NOTE | ~2017-04-06 | HP ---
PATIENT: ANNALISA ALVARADO MEDICAL RECORD: [id number] ACCOUNT: [id number] LOCATION:[address] : 35 ADMISSION DATE: 04/06/17 HISTORY AND PHYSICAL EXAMINATION Admission History and Physical HISTORY OF PRESENT ILLNESS: The patient presented to the Emergency Room with acute onset of chest pain after weeding, working in the garden, some relief with rest, if resumed activity, chest pain worsened, radiating to her neck and jaw. PAST MEDICAL HISTORY: Significant for cardiovascular disease with stents approximately [address] Augustin. Also, history of hypothyroidism. REVIEW OF SYSTEMS: GENERAL: No acute change in weight or appetite. HEENT: No cephalgia, visual changes, tinnitus, epistaxis, or dysphagia. CARDIOVASCULAR: Significant as above. Also of note, on the patient's arrival to the ER, she was given nitroglycerin with complete resolution of chest pain. PULMONARY: Denies hemoptysis, denies night sweats. GASTROINTESTINAL: Denies hematemesis, hematochezia, or melena. GENITOURINARY: Denies dysuria, denies change in frequency. MUSCULOSKELETAL: No acute changes. ENDOCRINE: Denies polyuria, polydipsia, or polyphagia. FAMILY HISTORY: Noncontributory. CURRENT MEDICATIONS: Aspirin 81 mg daily, [place] Thyroid, vitamin D, Krill, beta-carotene, she was on Plavix following her stents, but this has been discontinued at her cardiology followup. ALLERGIES: LATEX. SOCIAL HISTORY: Negative for tobacco or alcohol. PHYSICAL EXAMINATION: VITAL SIGNS: Temp 98.4, blood pressure is 140/53, heart rate 53, respirations 16 and O2 sats 96%. GENERAL: Alert and oriented, no present distress. HEENT: Head is normocephalic and atraumatic. Eyes: Pupils are equal, round, reactive to light and accommodation. Extraocular muscles are intact. Conjunctiva was not injected. Ears: Canals patent, TMs are intact. Nose: Nares patent without drainage. Throat: No erythema and no exudates. NECK: Supple. No lymphadenopathy and no JVD. LABORATORY DATA: ProBNP is 311. CBC: White count 5000, hemoglobin 13.4, hematocrit 38.6 and platelets 154. Chemistry shows a sodium of 140, potassium 3.4, chloride 106, bicarbonate 28.2, BUN 11, creatinine 0.9 and glucose 117. CK is 143, CK-MB is 3.4 and troponin 0.016. Triglycerides 217. DIAGNOSTIC DATA: Chest x-ray PA and lateral, no acute cardiopulmonary abnormalities, persistent nodular density in the right lung base, likely representing pulmonary nodule. Recommendation for followup CT of the chest. EKG shows sinus rhythm, nonspecific ST changes, ventricular rate of 67. HISTORY AND PHYSICAL [id number] FEBRUARY,ANNALISA TOMLINSON ASSESSMENT AND PLAN: 1. Chest pain with exertion, relieved with sublingual nitroglycerin, known cardiovascular disease. The patient is admitted. Cardiology consulted. Cycle enzymes. 2. Hypothyroid. Resume patient's home medications. TRANSINT:[id number] Voice Confirmation ID: [id number] DOCUMENT ID: [id number] RUPA LOWRY DO CC: [id number] DICTATION DATE: 04/06/171753 WAX BLENDER: 04/06/171921 ADM IN [facility] [address] [id number]
--- NOTE | ~2017-04-06 | HEMODYNAMI ---
PATIENT:ANNALISA ALVARADO MEDICAL RECORD: [id number] : 35 LOCATION:[facility] D.2114 ADMISSION DATE: 04/06/17 Generatedon:04/07/201713:44 Patient name: ANNALISA ALVARADO Patient #: [id number] SSN: [id number] : 1935 Date of study: 04/07/2017 Page: Of Hemodynamic Procedure Report Patient Data Patient Demographics Procedure consent was obtained First Name: ANNALISA Gender: Female Last Name: CHRISTIANO : 1935 [facility] Initial: DAVI Age: 81 year(s) Patient #: [id number] Race: SSN: [id number] Additional ID: [id number] Contact details [address]: [address] [place] [address] [address] State: [place] City: [place] Zip code: [address] Past Medical History Allergies Allergen Reaction Date Comments Reported Other allergy 01/09/2017 LATEX Other allergy 01/10/2017 Latex Natural rubber 04/07/2017 and latex Admission Admission Data Admission Date: 04/06/2017 Admission Time: 14:34 Room #: D.2114 Lab Results Lab Result Date: 04/07/2017 Lab Result Time: 0:00 Biochemistry Name Units Result Min Max Creatinine mg/dl 1 --(--*-)-- 0.6 1.3 CBC Name Units Result Min Max Hemoglobin g/dl 12.6 -*(----)-- 13.5 17.5 Procedure Procedure Types Cath Procedure Diagnostic Procedure LHC LHC w/Coronaries Miscellaneous Procedures Moderate Sedation up to 15 minutes Procedure Description Procedure Date Procedure Date: 04/07/2017 Procedure Start Time: 13:28 Procedure End Time: 13:44 Procedure Staff Name Function Holley Peacock RT Monitor Robyn Hazel RT Scrub Meera Pulliam RN Nurse Carlos Gagnon MD Performing Physician Indication Chest pain Procedure Data Cath Procedure Fluoroscopy Diagnostic fluoroscopy Total fluoroscopy Time: 1.9 time: 1.9 min min Diagnostic fluoroscopy Total fluoroscopy dose: 300 dose: 300 mGy mGy Contrast Material Contrast Material Type Amount (ml) Isovue 300 69 Entry Location Entry Primary Successful Side Size Upsize Upsize Entry Closure Succes sful Closure Location (Fr) 1 (Fr) 2 (Fr) Remarks Device Remarks Femoral Right 5 Fr Exoseal artery Estimated blood loss: 5 ml Diagnostic catheters Device Type Used For End Catheter Placement Cordis 5Fr JL 4.0 Left Coronary Catheter (MP) Angiography Cordis 5Fr 3DRC Catheter Right Coronary (MP) Angiography Cordis 5Fr Pigtail LV Angiography Catheter (MP) Procedure Complications No complications Procedure Medications Medication Administration Route Dosage Oxygen NC 2 l/min Lidocaine 2% added to field 20 Heparin Flush Bag added to field 2 bags (1000units/500ml NS) 0.9% NaCl I.V. 100 ml/hr Versed I.V. 1 mg Fentanyl I.V. 50 mcg Hemodynamics Rest HGB: 12.6 (g/dl) Heart Rate: 59 (bpm) Pressure Samples Time Site Value (mmHg) Purpose Heart Use Rate(bpm) 13:38 LV 154/-11,21 EDP 60 13:39 AO 144/62(96) Pullback 63 13:39 LV 151/12,20 Pullback 63 Gradients Valve Time Site 1 Site 2 Mean SEP/DFP Peak To Heart Use (mmHg) (sec/min) Peak Rate (mmHg) (bpm) Aortic 13:39 LV AO 9 20 7 63 151/12,20 144/62(96) Calculations Valve P-P Mean Valve Index Valve Source Name Gradient Area Flow (cm2) Aortic 7 9 7 9 Snapshots Pre Cath Intra NCS Post Cath Vital Signs Time Heart Resp SPO2 etCO2 [id number] NIBP (mmHg) Rhythm Pain Sedation Rate (ipm) (%) (mmHg) (mmHg) Status Level (bpm) 13:20:43 68 16 98 0 0 170/77(133) NSR 0 (11) 10(A) , No pain 13:26:06 62 14 99 0 0 142/77(123) NSR 0 (11) 10(A) , No pain 13:30:28 65 14 98 0 0 145/73(124) NSR 0 (11) 10(A) , No pain 13:34:46 66 16 98 0 0 141/69(118) NSR 0 (11) 9(A) , No pain 13:39:09 63 15 100 0 0 140/65(112) NSR 0 (11) 9(A) , No pain 13:43:27 60 14 100 0 0 141/65(116) NSR 0 (11) 9(A) , No pain Medications Time Medication Route Dose Verified Delivered Reason Notes Effec tiveness by by 13:10:40 Oxygen NC 2 Carlos Buffie used for l/min Kalin Pulliam RN procedure 13:10:47 Lidocaine 2% added 20ml Carlos Carlos used for to vial Kalin Gagnon MD procedure field 13:10:55 Heparin Flush added 2 Carlos Carlos used for Bag to bags Kalin Gagnon MD procedure (1000units/500ml field NS) 13:11:05 0.9% NaCl I.V. 100 Carlos Buffie Per ml/hr Kalin Pulliam RN physician 13:29:28 Versed I.V. 1 mg Carlos Buffie for Kalin Pulliam RN sedation 13:29:36 Fentanyl I.V. 50 Carlos Buffie for mcg Kalin Pulliam RN sedation Procedure Log Time Note 12:24:54 Informed consent obtained and on chart 12:25:12 Diagnostic Cath Status : Elective 12:25:56 Indication : Chest pain 12:52:32 Meera Pulliam RN sent for patient. Start room use. 12:52:43 Time tracking: Call back 12:52:47 Plan of Care:Hemodynamics will remain stable., Cardiac rhythm will remain stable., Comfort level will be maintained., Respiratory function will remain adequate., Patient/ family verbilizes understanding of procedure., Procedure tolerated without complication., Recovers from procedure without complications.. 13:00:46 Patient received from PCU to CCL 1 Alert and oriented. Tansferred to table in Supine position. 13:00:47 Correct patient and procedure confirmed by team. 13:00:47 Warm blankets applied, and loretta hugger turned on for patient comfort. 13:00:48 ECG and BP/O2 sat monitors applied to patient. 13:08:58 Rhythm: sinus rhythm 13:08:59 Full Disclosure recording started 13:09:09 Vital chart was stopped 13:09:12 Vital chart was started 13:09:28 H&P Date Dictated: 04/07/2017 Within 30 days and on chart.. 13:09:29 Pre-procedure instructions explained to patient. 13:09:30 Pre-op teaching completed and patient verbalized understanding. 13:09:31 Family in waiting room. 13:09:33 Patient NPO since Midnight. 13:09:43 Patient allergic to Natural rubber and latex 13:09:46 Is the patient allergic to Iodine/contrast media? No. 13:09:48 Is patient on blood thinner?Yes 13:09:49 Patient diabetic? No. 13:09:53 Snore? Yes 13:09:53 Previous problem with sedation/anesthesia? No ? 13:09:54 Sleep apnea? No 13:09:56 Deviated septum? No 13:09:57 Opens mouth fully? Yes 13:09:58 Sticks out tongue? Yes 13:09:59 Airway obstruction? No ? 13:10:02 Dentures? Yes In 13:10:05 Pre procedure: right dorsailis pedis pulse 2+ Normal; easily identifiable; not easily obliterated 13:10:09 Patient pain scale 0/10 ?. 13:10:20 IV patent on arrival in right wrist with 0.9% NaCl at [facility]. 13:10:40 Oxygen 2 l/min NC was administered by Meera Pulliam RN; used for procedure; 13:10:47 Lidocaine 2% 20ml vial added to field was administered by Carlos Gagnon MD; used for procedure; 13:10:55 Heparin Flush Bag (1000units/500ml NS) 2 bags added to field was administered by Carlos Gagnon MD; used for procedure; 13:11:05 0.9% NaCl 100 ml/hr I.V. was administered by Meera Pulliam RN; Per physician; 13:11:15 Lab Result : Hemoglobin 12.6 g/dl 13:11:15 Lab Result : Creatinine 1 mg/dl 13:11:19 Lab results completed and on chart. 13:11:23 Right groin area was prepped with chlora-prep and draped in sterile fashion 13:11:24 Alarms reviewed by R. N. 13:11:25 Sharps counted by scrub and verified by R.N. 13:11:29 Baseline sample Acquired. 13:23:10 Vital chart was stopped 13:23:11 Vital chart was started 13:23:32 Vital chart was stopped 13:23:33 Vital chart was started 13:23:49 Vital chart was stopped 13:23:53 Vital chart was started 13:24:23 Vital chart was stopped 13:24:32 Full Disclosure recording stopped 13:24:57 Vital chart was started 13:25:40 Final Timeout: patient, procedure, and site verified with staff and physician. All members of the team are in agreement. 13:25:41 Right groin site verified by team. 13:25:44 Physical assessment completed. ASA score P 2 - A patient with mild systemic disease as per Holley Counts RT(R). 13:25:48 Sedation plan: IV Moderate Sedation Versed, Fentanyl 13:25:59 Baseline sample Acquired. 13:27:27 Use device set Femoral Dx 13:27:29 Acist Syringe opened to sterile field. 13:27:29 Bag Decanter opened to sterile field. 13:27:30 Medline Cath Pack opened to sterile field. 13:27:30 Terumo 5Fr Corydon Sheath opened to sterile field. 13:27:31 St Juan F 260cm J .035 wire opened to sterile field. 13:27:31 Acist Hand Control opened to sterile field. 13:27:32 Acist Manifold opened to sterile field. 13:27:32 Diagnostic Infinity 5Fr Multipack catheter opened to sterile field. 13:27:33 Tegaderm 4 x 4 opened to sterile field. 13:28:42 Zero performed for pressure channel P1 13:28:49 Procedure started. 13:28:49 Full Disclosure recording started 13:28:52 Local anesthetic to right femoral artery with Lidocaine 2% by Carlos Gagnon MD.INITIAL ACCESS ONLY 13:29:28 Versed 1 mg I.V. was administered by Meera Pulliam RN; for sedation; 13:29:36 Fentanyl 50 mcg I.V. was administered by Meera Pulliam RN; for sedation; 13:30:17 A 5 Fr sheath was inserted into the Right Femoral artery 13:30:25 Cook 4Fr Micropuncture ([id number]) opened to sterile field. 13:31:48 A Cordis 5Fr JL 4.0 Catheter (MP) was advanced over the wire and used for Left Coronary Angiography. 13:34:31 Catheter exchanged over wire. 13:35:09 A Cordis 5Fr 3DRC Catheter (MP) was advanced over the wire and used for Right Coronary Angiography. 13:36:52 Catheter exchanged over wire. 13:37:16 A Cordis 5Fr Pigtail Catheter (MP) was advanced over the wire and used for LV Angiography. 13:38:47 LV gram done using REYEZ 13:38:48 LV hemodynamics recorded. 13:38:51 Injector settings: Ml/sec: 12, Volume: 8, 13:39:10 Catheter removed. 13:39:21 Sheath removed intact; hemostasis achieved with Exoseal to the Right Femoral artery. 13:39:26 Procedure ended.(Physican Out) 13:39:40 Cordis 5Fr Exoseal opened to sterile field. 13:39:47 Fluoroscopy time 01.90 minutes. 13:39:51 Fluoroscopy dose: 300 mGy 13:39:51 Flurop Dose total: 300 13:39:53 Contrast amount:Isovue 300 69ml. 13:39:55 Sharps counted by scrub and verified by R.N. 13:39:56 Insertion/operative site no bleeding no hematoma. 13:39:59 Post-op/insertion site Right Femoral artery dressed using a 4 x 4 and Tegaderm. 13:40:02 Post right femoral artery:stable, clean and dry 13:40:04 Post Procedure Pulses reassessed and unchanged 13:40:08 Post-procedure physical assessment completed. ASA score P 2 - A patient with mild systemic disease as per Carlos Gagnon MD. 13:40:11 Post procedure rhythm: unchanged. 13:40:16 Estimated blood loss: 5 ml 13:40:47 Post procedure instruction explained to patient.Patient verbalizes understanding. 13:40:47 Patient needs reinforcement of post procedure teaching. 13:41:04 Procedure type changed to Cath procedure, Diagnostic procedure, LHC, LHC w/Coronaries, Miscellaneous Procedures, Moderate Sedation up to 15 minutes 13:41:10 Procedure Complication : No complications 13:41:12 See physician's report for complete and final results. 13:44:11 Procedure and supply charges have been captured, reviewed, submitted and are correct. 13:44:13 Report given to PCU. 13:44:16 Patient transfered to PCU with Bed. 13:44:31 Procedure ended. 13:44:31 Full Disclosure recording stopped 13:44:34 End room use (Document Last) 13:44:47 Vital chart was stopped Device Usage Item Name Manufacture Quantity Catalog Hospital Part Current Minimal Lot# / Number Charge Number Stock Stock Serial# Code Acist Syringe Acist 1 16287 170372 692079 826645 20 [employer] Bag Decanter Microtek 1 2002S [id number] 57390 387415 5 [employer] Inc[employer] Medline Cath Cardinal 1 [id number] 904460 37498 817805 5 Pack Health Terumo 5Fr Terumo 1 [id number] 533111 562616 726051 [address] Juan F [address] Juan F 1 716534 723251 192947 526200 30 J .035 wire Acist Hand Acist 1 60449 779481 010550 003381 5 Control [employer] Inc Acist Acist 1 99874 304788 543397 968151 5 Manifold [employer] Inc Diagnostic Cardinal 1 [id number] 670669 78622 934446 30 Infinity 5Fr Health Multipack catheter Tegaderm 4 x 3M 1 1626W 034365 309256 646006 5 4 Cook 4Fr Cook Medical 1 [id number] 347254 008844 779004 5 Micropuncture ([id number]) Cordis 5Fr JL Cardinal 1 762574 5 4.0 Catheter Health (MP) Cordis 5Fr Cardinal 1 295529 5 3DRC Catheter Health (MP) Cordis 5Fr Cardinal 1 747321 5 Pigtail Health Catheter (MP) Cordis 5Fr Cardinal 1 EX500 495494 400024 384812 10 [facility] Health Signature Audit [place] Stage Time Signature Unsigned Intra-Procedure 04/07/2017 Holley 1:44:44 PM Counts RT(R) Signatures Monitor : Holley Signature : Counts RT Date : Time : [facility] [address] [place] [address]
[2017-04-06 13:17] LABS: BASOPHILS 0.4 % (0-2); EOSINOPHILS 0.6 % (0-7); HEMATOCRIT 38.6 % (36.0-48.0); HEMOGLOBIN 13.4 g/dL (12-16); IMMATURE GRANULOCYTES 0.2 % (0-5); LYMPHOCYTES 33.3 % (15-50); MCH 30.5 pg (26.0-34.0); MCHC 34.7 g/dL (31.0-37.0); MCV 87.7 fL (80.0-100.0); MEAN PLATELET VOLUME 9.8 fL (7.4-10.4); NEUTROPHILS 57.5 % (40-80); PLATELET COUNT 154 10x3/uL (130-400); RDW 12.7 % (11.5-14.5)
[2017-04-06 13:34] LABS: ALBUMIN 3.6 g/dL (3.4-5.0); ALKALINE PHOSPHATASE 72 U/L (46-116); ALT (SGPT) 20 U/L (10-68); CALC OSMOLALITY 278 mosm/kg (275-300); CARBON DIOXIDE 28.2 mmol/L (21.0-32.0); CHLORIDE - SERUM 106 mmol/L (98-107); CREATININE - SERUM 0.9 mg/dL (0.6-1.3); GLUCOSE 117 mg/dL (74-106); POTASSIUM - SERUM 3.4 mmol/L (3.5-5.1); PROTEIN - SERUM 7.1 g/dL (6.4-8.2); SODIUM 140 mmol/L (136-145); UREA NITROGEN 11 mg/dL (7-18); eGFR NON AFRICAN AMERICAN 64 mL/min (90-120)
[2017-04-06 13:47] LABS: CHOL - HDL RATIO 4.8 ratio (2.3-4.1); CHOLESTEROL, TOTAL 228 mg/dL (0-200); CKMB 3.4 U/L (0.0-3.6); CREATINE KINASE 143 UL (21-215); HDL CHOLESTEROL 48 mg/dL (32-96); LDL CHOLESTEROL 137 mg/dL (0-100); LDL-HDL RATIO 2.9 ratio (1.5-3.5); TRIGLYCERIDE 217 mg/dL (30-200); TROPONIN-I 0.016 ng/mL (0.000-0.060)
[2017-04-06 16:49] VITALS: BP 140/53; Ht 172.7 cm; Wt 72.7 kg
[2017-04-06 20:00] VITALS: BP 133/69
[2017-04-07 00:03] VITALS: BP 127/67
[2017-04-07 03:59] VITALS: BP 119/62
[2017-04-07 07:49] VITALS: BP 148/66
[2017-04-07 08:09] LABS: BASOPHILS 0.4 % (0-2); EOSINOPHILS 1.8 % (0-7); HEMATOCRIT 37.4 % (36.0-48.0); HEMOGLOBIN 12.6 g/dL (12-16); LYMPHOCYTES 58.1 % (15-50); MCH 30.1 pg (26.0-34.0); MCHC 33.7 g/dL (31.0-37.0); MCV 89.3 fL (80.0-100.0); MEAN PLATELET VOLUME 10.7 fL (7.4-10.4); MONOCYTES 11.9 % (2-11); NEUTROPHILS 27.8 % (40-80); PLATELET COUNT 151 10x3/uL (130-400); RBC 4.19 10x6/uL (4.00-5.40); WBC 4.5 10x3/uL (4.8-10.8)
[2017-04-07 08:18] LABS: ANION GAP 12.3 mmol/L (8-16); CALCIUM 8.6 mg/dL (8.5-10.1); CARBON DIOXIDE 26.4 mmol/L (21.0-32.0); POTASSIUM - SERUM 3.7 mmol/L (3.5-5.1)
[2017-04-07 11:48] VITALS: BP 135/73
== END 2017-04-07 16:50 | disposition home or self-care (01) ==
LOC: D.ER 12:46 → OBSVTIME 14:34 → D.M2 14:34
PROVIDERS: Emergency Medicine; Internal Medicine Cardiovascular Disease; ADMIT Family Medicine
DX: I25.110 Atherosclerotic heart disease of native coronary artery with unstable angina pectoris (principal); Z95.5 Presence of coronary angioplasty implant and graft; E03.9 Hypothyroidism, unspecified